=== PATIENT | male | born 1960 | race Caucasian/White ===

== ENCOUNTER 2018-02-16 14:31 | Emergency (ER) | payer MEDICAID, SELFPAY ==
[2018-02-16] VITALS (39 sets, daily range): BP systolic 130–159; BP diastolic 87–103; PULSE 69–111; RESP 10–31; TEMP 36.7; O2SAT 95–97
--- NOTE | 2018-02-16 15:15 | DI.RAD_ITS ---
SYMPTOMS/DIAGNOSIS: CHEST PAIN PA AND LATERAL CHEST: The heart is normal in size. The lungs are clear. The mediastinal structures and pleura appear intact. SUMMARY: Normal chest.
[2018-02-16 15:49] LABS: Abs Immature Grans 0.02 k/cumm (0.0-0.09); Absolute Basophil Count 0.04 k/cumm (0.0-0.2); Absolute Lymphocyte Count 1.61 k/cumm (1.2-3.4); Absolute Monocyte Count 0.39 k/cumm (0.11-0.7); Basophils % 0.5; Eosinophils % 2.6; HGB 15.3 g/dL (13.5-17.5); Immature Grans % 0.3; Mean Corp. HGB Concentration 34.8 g/dL (32.0-36.0); Mean Corpuscular Hemoglobin 31.7 pg (27.0-33.0); Mean Corpuscular Volume 91.1 fL (80-95); Mean Platelet Volume 11.4 fL (8.0-11.0); Monocytes % 5.1; Neutrophils % 70.5; Platelet Count 183 x1000/uL (130-400); RBC 4.83 m/cumm (4.50-6.00); RBC Distribution Width 12.7 % (11.8-14.1); White Blood Cell Count 7.66 k/cumm (4.4-10.8)
[2018-02-16 15:54] LABS: ALT 50 U/L (12-78); AST 22 U/L (15-37); Albumin 3.8 g/dL (3.4-5.0); Alkaline Phosphatase 91 U/L (46-116); Anion Gap 7.5 mmol/L (3-11); BUN 15 mg/dL (7-18); Bilirubin, Direct 0.07 mg/dL (0.00-0.20); Bilirubin, Total 0.4 mg/dL (0.2-1.0); CO2 30.5 mmol/L (21.0-32.0); CREATININE 1.04 mg/dL (0.70-1.30); Calcium 8.5 mg/dL (8.5-10.1); Chloride 106 mmol/L (98-107); Glucose 128 mg/dL (70-100); Magnesium 1.9 mg/dL (1.8-2.4); NT-proBNP 53 pg/mL; Potassium 3.5 mmol/L (3.5-5.1); Sodium 144 mmol/L (136-145)
[2018-02-16 15:57] LABS: Troponin I < 0.02 ng/mL (0.00-0.06)
[2018-02-16 16:19] LABS: PTT Activated 24.3 sec (21.0-31.4); Prothrombin Time 10.2 sec (9.3-10.8)
--- NOTE | 2018-02-16 18:09 | ED.GENADUL_ITS ---
Discharge Plan Disposition Patient Disposition: HOME Condition: Improving Discharge Details Chief Complaint: Chest Pain Clinical Impression: Elevated blood pressure reading, Anxiety about health Primary Care Provider: Hilario Garrido ED Provider: Carlos Eduardo Stevens Home Meds and New Rx's Prescriptions: No Action aspirin [Aspir-81] 81 MG tablet,delayed release (DR/EC) 1 tab PO DAILY Qty: 90 RF: 3 Discharge Instructions Instructions: Hypertension (ED), Anxiety (ED) Additional Instructions: Return immediately to the emergency department for any new or worsening symptoms otherwise follow-up with your primary care provider in 1 week for reassessment Referrals: Hilario Garrido [Primary Care Provider] - 1 week (Follow-up with your primary care provider in 1 week for reassessment to have your blood pressure rechecked) Medical Decision Making <Carlos Eduardo Stevens NP - Last Filed: 02/16/18 19:49> MDM Narrative Medical decision making narrative: Patient presenting to the emergency department for chief complaint of elevated blood pressure and some chest pressure. Patient states that he noticed this occurring this morning around 9 AM when he checked his pressure it was 170/110. Patient did start looking on the Internet which seems to have made things worse and increased chest pressure. Patient is unsure if he is having any ill symptoms from the elevated blood pressure or it is just anxiety related. Patient denies any diaphoresis, cough, difficulty breathing but does state continued chest pressure throughout the course of the day. He does state some ringing in his ears that occurs when he feels his blood pressure is high but otherwise denies any focal neurological deficits physical exam is unremarkable and patient was stable plan to rule out ACS with labs, perform chest x-ray due to chest pain and pressure, and do EKG. EKG reviewed with Dr. Dempsey and see interpretation noted below. Initial labs are reviewed and unremarkable and negative initial troponin but plan to do 4 hour troponin for for rule out. Patient states he is otherwise feeling fine and his blood pressure was noted to be 130s over 80s when I went in the room to reassess patient. Patient was given 3 additional aspirin given that he did take 1 aspirin this morning just in case positive troponin. Patient was agreeable to wait for second troponin. Second troponin was also negative and patient reassess. Patient states full resolution of symptoms and chest discomfort has resolved. He continually states he should not of went on the Internet and started looking up symptoms because the chest discomfort did not begin until he looked up elevated blood pressure. Given this I do feel that patient should have a follow-up with primary care in the next week for elevated blood pressure and anxiety about his health condition but otherwise I do not feel that any further workup is needed and that stress test may be performed on outpatient basis if primary care feels that this is necessary. After discussion of diagnosis and plan of care patient states no further needs, questions, or concerns at this time patient states clear understanding of need to return for any new or worsening symptoms. Patient was encouraged to take and record his daily blood pressure meetings that he obtains at home and to bring his machine with for his follow-up appointment to make sure that it is accurate. Lab Data Lab Results 02/16/18 02/16/18 02/16/18 Range/Units 15:10 15:10 15:10 WBC 7.66 (4.4-10.8) k/cumm RBC 4.83 (4.50-6.00) m/cumm Hgb 15.3 (13.5-17.5) g/dL Hct 44.0 (40.0-50.0) % MCV 91.1 (80-95) fL MCH 31.7 (27.0-33.0) pg MCHC 34.8 (32.0-36.0) g/dL RDW 12.7 (11.8-14.1) % Plt Count 183 (130-400) x1000/uL MPV 11.4 H (8.0-11.0) fL Immature Gran % 0.3 Neutrophils % 70.5 Lymphocytes % 21.0 Monocytes % 5.1 Eosinophils % 2.6 Basophils % 0.5 Absolute Neutrophils 5.40 (1.2-6.7) k/cumm Absolute Lymphocytes 1.61 (1.2-3.4) k/cumm Absolute Monocytes 0.39 (0.11-0.7) k/cumm Absolute Eosinophils 0.20 (0.0-0.7) k/cumm Absolute Basophils 0.04 (0.0-0.2) k/cumm PT 10.2 (9.3-10.8) sec INR 1.0 (1.0-3.5) APTT 24.3 (21.0-31.4) sec Sodium 144 (136-145) mmol/L Potassium 3.5 (3.5-5.1) mmol/L Chloride 106 (98-107) mmol/L Carbon Dioxide 30.5 (21.0-32.0) mmol/L Anion Gap 7.5 (3-11) mmol/L BUN 15 (7-18) mg/dL Creatinine 1.04 (0.70-1.30) mg/dL Estimated GFR/1.73 m2 >= 60.00 (mL/min/1.73m2) Glucose 128 H (70-100) mg/dL Calcium 8.5 (8.5-10.1) mg/dL Magnesium 1.9 (1.8-2.4) mg/dL Total Bilirubin 0.4 (0.2-1.0) mg/dL Conjugated Bilirubin 0.07 (0.00-0.20) mg/dL AST 22 (15-37) U/L ALT 50 (12-78) U/L Alkaline Phosphatase 91 (46-116) U/L Troponin I < 0.02 (0.00-0.06) ng/mL NT-Pro-B Natriuret Pep 53 ( - 299) pg/mL Total Protein 7.0 (6.4-8.2) g/dL Albumin 3.8 (3.4-5.0) g/dL <Moshe Dempsey MD - Last Filed: 02/16/18 18:18> ECG Data Attestation: I personally reviewed and interpreted this ECG (s) as follows: Prior ECG tracings: not available for review Interpretation: sinus rhythm, normal axis, pr intervls normal, no acute st t wave ischemic findings HPI <Carlos Eduardo Stevens NP - Last Filed: 02/16/18 19:49> General Date/Time Provider Initiated Documentation: 02/16/18 14:52 . Limitations to Documentation: no limitations . Information obtained by: patient . History of Present Illness 58 year old M presents to the emergency department with the chief complaint of chest pain/ high BP, with intensity rated at 4. Quality is described as dull (pressure), and is localized to the chest. Patient reports no radiation. Patient started experiencing this hour(s) (6) and it has been constant. No relieving factors improve symptom(s), No exacerbating factors reported . Patient did receive the following treatments prior to arrival, Aspirin (81mg) Related Data Home Medications Medication Instructions Recorded Confirmed aspirin [Aspir 81] 1 tab PO DAILY #90 tab-cap 10/13/16 02/16/18 Allergies Allergy/AdvReac Type Severity Reaction Status Date / Time No Known Allergies Allergy Unverified 02/16/18 15:03 General Stated Complaint: Chest Pain PRISCILLA: 3 Review of Systems <Carlos Eduardo Stevens NP - Last Filed: 02/16/18 19:49> Constitutional Denies body ache(s), Denies chills and Denies fever(s) Cardiovascular Reports as per HPI, Reports chest pain, Denies diaphoresis, Denies lightheadedness and Denies dyspnea Respiratory Denies cough, Denies hemoptysis and Denies dyspnea Gastrointestinal Denies abdominal pain, Denies nausea and Denies vomiting Integumentary/Breasts Denies rash Neurologic Denies confusion and Denies sensory deficit Psychiatric Denies confusion Exam <Carlos Eduardo Stevens NP - Last Filed: 02/16/18 19:49> Const General: cooperative, no acute distress and not ill appearing Orientation: alert, awake and oriented x3 HENMT Mouth: moist mucous membranes Resp Effort & Inspection: normal respiratory effort, able to speak in complete sentences and no respiratory distress Cardio Jugular venous pressure: no JVD Palpation: normal PMI Rate: regular rate Rhythm: regular rhythm Heart Sounds: S1 normal and S2 normal Pulses: radial pulses present on the right 2+ Skin General skin exam: no rashes or lesions noted Neuro General: alert, awake, oriented x3, moves all extremities and no focal motor deficits Sensory Exam: no sensory deficits noted Course <Carlos Eduardo Stevens NP - Last Filed: 02/16/18 19:49> Vital Signs Temperature 36.7 C 02/16/18 14:37 Pulse 82 02/16/18 14:37 Respiratory Rate 22 02/16/18 14:37 Blood Pressure 159/103 H 02/16/18 14:37 Pulse Oximetry 97 02/16/18 14:37 Temperature 36.7 C 02/16/18 14:37 Pulse 69 02/16/18 17:46 Respiratory Rate 16 02/16/18 18:00 Blood Pressure 133/95 H 02/16/18 17:46 Pulse Oximetry 96 02/16/18 18:00 Lab/Test Results Lab/Test Results: Laboratory Tests 02/16/18 02/16/18 02/16/18 15:10 15:10 15:10 WBC 7.66 RBC 4.83 Hgb 15.3 Hct 44.0 MCV 91.1 MCH 31.7 MCHC 34.8 RDW 12.7 Plt Count 183 MPV 11.4 H Immature Gran % 0.3 Neutrophils % 70.5 Lymphocytes % 21.0 Monocytes % 5.1 Eosinophils % 2.6 Basophils % 0.5 Absolute Neutrophils 5.40 Absolute Lymphocytes 1.61 Absolute Monocytes 0.39 Absolute Eosinophils 0.20 Absolute Basophils 0.04 PT 10.2 INR 1.0 APTT 24.3 Sodium 144 Potassium 3.5 Chloride 106 Carbon Dioxide 30.5 Anion Gap 7.5 BUN 15 Creatinine 1.04 Estimated GFR/1.73 m2 >= 60.00 Glucose 128 H Calcium 8.5 Magnesium 1.9 Total Bilirubin 0.4 Conjugated Bilirubin 0.07 AST 22 ALT 50 Alkaline Phosphatase 91 Troponin I < 0.02 NT-Pro-B Natriuret Pep 53 Total Protein 7.0 Albumin 3.8
[2018-02-16] MEDS: Aspirin 81 MG CHEW 243 MG CH (18:16)
[2018-02-16 19:16] LABS: Troponin I 0.02 ng/mL (0.00-0.06)
--- NOTE | 2018-02-17 08:56 | CMPROGNOTE_ITS ---
Care Management Progress Note 02/17/18-Pt seen on 02/16/18 for chest pain and elevated bp (170/110) by Mojgan Stevens NP. Referral for one week f/u was sent to [facility] as Dr. Megan Garrido is Pt's pcp.
== END 2018-02-16 19:56 | disposition home or self-care (01) ==
PROVIDERS: Emergency Provider Nurse Practitioner Family; PCP Family Medicine
DX: R03.0 Elevated blood-pressure reading, without diagnosis of hypertension (principal); F41.1 Generalized anxiety disorder
CPT/HCPCS: 36415; 80053; 80076; 93005; 99285; 71046; 83735; 83880; 84484; 85025; 85610; 85730; 93010; 99284

== ENCOUNTER 2018-05-26 14:38 | Outpatient (CLI) | payer MEDICAID, SELFPAY ==
[2018-05-26 15:05] LABS: Hemoglobin A1C 5.6 % (4.5-6.2)
== END 2018-05-26 14:58 ==
PROVIDERS: PCP Family Medicine; Visit Provider Family Medicine
DX: E74.39 Other disorders of intestinal carbohydrate absorption (principal)
CPT/HCPCS: 36415; 83036

== ENCOUNTER 2019-08-16 00:28 | Outpatient (CLI) | payer MEDICAID, SELFPAY ==
--- NOTE | 2019-08-16 12:45 | DI.CTLCSR_ITS ---
EXAM: CT CHEST LUNG CANCER SCREEN CLINICAL HISTORY: Screening for lung cancer, F12.2 TECHNIQUE: CT examination of chest was performed utilizing low-dose lung cancer screening protocol. COMPARISON: Examination is compared to prior study of 10/25/2017 FINDINGS: Note is again made of a calcified granuloma of the right upper lobe, unchanged from the prior study. A couple of 1-2 millimeter in diameter nodules are also seen in the right upper lobe. No additional pulmonary nodule seen. Tracheobronchial tree appears intact. There are a few focal linear scars in the lung bases. Mild pulmonary emphysematous changes noted. No mediastinal or hilar adenopathy. No pleural effusion. Images obtained through upper abdomen show unremarkable appearance of visualized portions of liver and spleen. IMPRESSION: Negative LDCT, category 2, benign appearance or behavior, continue annual screening with LDCT in [address] [place] [address].
== END 2019-08-16 00:48 ==
PROVIDERS: PCP Family Medicine; Visit Provider Family Medicine
DX: Z12.2 Encounter for screening for malignant neoplasm of respiratory organs (principal); R91.8 Other nonspecific abnormal finding of lung field; J84.10 Pulmonary fibrosis, unspecified; J43.8 Other emphysema
CPT/HCPCS: G0297

== ENCOUNTER 2020-11-14 14:19 | Outpatient (REF) | payer MEDICAID, SELFPAY ==
[2020-11-15 10:34] LABS: COVID-19 RT-PCR UVMMC Result Negative (Negative)
== END 2020-11-14 14:20 | disposition home or self-care (01) ==
LOC: LBN 14:19
PROVIDERS: PCP Family Medicine; Visit Provider Family Medicine
DX: Z20.822 Contact with and (suspected) exposure to COVID-19 (principal)
CPT/HCPCS: U0003

== ENCOUNTER 2020-11-24 03:23 | Outpatient (CLI) | payer MEDICAID, SELFPAY ==
[2020-11-24 12:49] LABS: Hemoglobin A1C 5.1 % (<5.7)
[2020-11-24 12:58] LABS: Calculated LDL 100 mg/dL (<100); Cholesterol 170 mg/dL (<200); HDL Cholesterol 34 mg/dL (40-60); Triglyceride 181 mg/dL (<150)
[2020-11-24 22:20] LABS: PSA, Screening 0.9 ng/mL (0.0-4.5)
== END 2020-11-24 03:24 | disposition home or self-care (01) ==
LOC: LOS 03:23
PROVIDERS: PCP Family Medicine; Visit Provider Family Medicine
DX: R73.9 Hyperglycemia, unspecified (principal); E78.5 Hyperlipidemia, unspecified; Z12.5 Encounter for screening for malignant neoplasm of prostate
CPT/HCPCS: 36415; 80061; 84153; 83036

== ENCOUNTER 2021-11-25 12:54 | Outpatient (CLI) | payer MEDICAID, SELFPAY ==
[2021-11-25 12:04] LABS: HCT 41.7 % (40.0-50.0); HGB 14.1 g/dL (13.5-17.5); MCH 31.5 pg (27.0-33.0); MCHC 33.8 % (32.0-36.0); MCV 93 fL (80-95); MPV 10.6 fL (8.0-11.0); Platelet Count 188 10^3/uL (130-400); RBC 4.47 10^6/uL (4.36-5.78); RDW 12.4 % (11.8-14.1); WBC 9.03 10^3/uL (4.4-10.8)
[2021-11-25 12:27] LABS: CREATININE 1.1 mg/dL (0.70-1.30); Calculated LDL 122 mg/dL (<100); Cholesterol 210 mg/dL (<200); HDL Cholesterol 52 mg/dL (40-60); Potassium 3.7 mmol/L (3.5-5.1); Triglyceride 184 mg/dL (<150)
== END 2021-11-25 12:55 | disposition home or self-care (01) ==
LOC: LBO 12:56
PROVIDERS: PCP Family Medicine; Visit Provider Family Medicine
DX: I10 Essential (primary) hypertension (principal); R53.83 Other fatigue; E78.5 Hyperlipidemia, unspecified
CPT/HCPCS: 36415; 80061; 85027; 82565; 84132

== ENCOUNTER → 2021-11-27 00:39 | Outpatient (CLI) | payer MEDICAID, SELFPAY ==
--- NOTE | 2021-11-27 12:45 | DI.CTLCSR_ITS ---
Exam(s) CT CHEST LUNG CANCER SCREEN EXAM: CT CHEST LUNG CANCER SCREEN CLINICAL HISTORY: Screening for lung cancer,current smoker, z12.2. TECHNIQUE: Imaging Protocol: Low Dose Technique CONTRAST MATERIAL: None COMPARISON: CT CT CHEST LUNG CANCER SCREEN from 08/16/2019 FINDINGS: CHEST: LUNGS: Calcified granuloma in the right upper lobe is unchanged. Benign-appearing increased markings in the right lower lobe superior segment are unchanged. No new significant right lung findings.. N o additional significant right lung findings and there are no significant focal findings in the oppos ite-left lung. There are no significant findings in the trachea and mainstem bronchi. There are no pleural effusions. MEDIASTINUM: There is no obvious hilar nor mediastinal adenopathy. CARDIAC: Heart size is normal. There is no pericardial effusion.Of the ascending thoracic aorta is s lightly prominent, measuring 3.9 cm. OTHER: No adrenal masses. OSSEOUS: No significant osseous lesions.. IMPRESSION: 1. Stable right upper lobe calcified granuloma. No new significant pulmonary nodules. 2. No pleural effusions nor intrathoracic adenopathy. 3. Lung RADS Cat 1 - Negative: No nodules and definitely benign nodules Lung-RADS 1.0 CATEGORIES: Category 0 - Prior chest CT exam(s) being located for comparison. Category 1 - Annual screening in 12 months. No nodules or definitely benign nodules. Category 2 - Annual screening in 12 months. Benign appearance. Nodules with low likelihood of becomin g active cancer. Category 3 - 6-month follow-up. Probably benign. Short-term follow-up suggested. Nodules with low lik elihood of becoming active cancer. Category 4A - 3-month follow-up and CT/PET if >8 mm in size. Suspicious finding. Findings which requi re additional testing. Category 4B - Findings which require additional testing and tissue sampling. Category 4X - Category 3 or 4 nodules with additional features or imaging findings that increases the suspicion of malignancy. Modifier S- Potentially clinically significant findings (non lung cancer) RADIATION DOSE DELIVERED: 99.12mGy.cm Total DLP 2.21mGy CTDIvol DATA REPOSITORY: All CT scans at this facility are submitted to the National Radiology Data Registry (NRDR) Dose Index Registry (DIR) with the [employer] (ACR). RADIATION OPTIMIZATION: All CT scans at this facility use at least one of these dose optimization te chniques: automated exposure control; mA and/or kV adjustment per patient size (includes targeted exa ms where dose is matched to clinical indication); or iterative reconstruction.
== END ==
PROVIDERS: PCP Family Medicine; Visit Provider Family Medicine
DX: Z12.2 Encounter for screening for malignant neoplasm of respiratory organs (principal); J84.10 Pulmonary fibrosis, unspecified
CPT/HCPCS: 71271

== ENCOUNTER 2022-11-25 09:01 | Outpatient (CLI) | payer MEDICAID, SELFPAY ==
[2022-11-25 11:16] LABS: CREATININE 1.1 mg/dL (0.70-1.30); Calculated LDL 134 mg/dL (<100); Cholesterol 214 mg/dL (<200); Estimated GFR 75.43 (mL/min/1.73m2); HDL Cholesterol 43 mg/dL (40-60); Potassium 3.7 mmol/L (3.5-5.1); Triglyceride 185 mg/dL (<150)
[2022-11-25 19:30] LABS: PSA, Screening 1.3 ng/mL (<=4.5)
== END 2022-11-25 09:02 | disposition home or self-care (01) ==
LOC: LOS 09:01
PROVIDERS: PCP Family Medicine; Visit Provider Family Medicine
DX: E78.5 Hyperlipidemia, unspecified (principal); Z12.5 Encounter for screening for malignant neoplasm of prostate; I10 Essential (primary) hypertension
CPT/HCPCS: 36415; 80061; 84153; 82565; 84132

== ENCOUNTER 2023-12-07 08:32 | Outpatient (CLI) | payer MEDICAID, SELFPAY ==
[2023-12-07 08:14] LABS: Hemoglobin A1C 5.3 % (<5.7)
[2023-12-07 08:47] LABS: Calculated LDL 117 mg/dL (<100); Cholesterol 201 mg/dL (<200); Estimated GFR 84.05 (mL/min/1.73m2); HDL Cholesterol 47 mg/dL (40-60); Potassium 3.6 mmol/L (3.5-5.1); Triglyceride 188 mg/dL (<150)
== END 2023-12-07 08:33 | disposition home or self-care (01) ==
LOC: LBO 08:32
PROVIDERS: PCP Family Medicine; Visit Provider Family Medicine
DX: I10 Essential (primary) hypertension (principal); E78.5 Hyperlipidemia, unspecified; E11.51 Type 2 diabetes mellitus with diabetic peripheral angiopathy without gangrene
CPT/HCPCS: 36415; 80061; 82565; 83036; 84132

== ENCOUNTER 2024-01-09 02:08 | Outpatient (CLI) | payer MEDICARE, MEDICAID, SELFPAY ==
--- NOTE | 2024-01-09 06:57 | DI.CTLCSR_ITS ---
Exam(s) CT CHEST LUNG CANCER SCREEN EXAM: CT CHEST LUNG CANCER SCREEN CLINICAL HISTORY: Screening for lung cancer,current smoker, F17.210 TECHNIQUE: Imaging Protocol: Axial computed tomography images with coronal and sagittal reformatted images were created and reviewed COMPARISON: CT CT CHEST LUNG CANCER SCREEN from 11/27/2021 FINDINGS: Tracheobronchial tree: Patent where visualized. No bronchiectasis. Pulmonary parenchyma: Atelectasis is seen in the lung bases. There is scarring seen in the right sonia g base. There is a calcified granuloma in the right upper lobe. No architectural distortion. Lung Nodules: There is a stable 2 mm nodule in the anterior aspect of the right upper lobe (series 2, image 114). No new pulmonary nodules are present. Mediastinum and Carina: No dominant adenopathy or fluid collection. The esophagus is unremarkable. Thyroid gland: Unremarkable. Lymph nodes: Unremarkable. Pleura: No effusion or pneumothorax. Heart: The heart is not dilated. No coronary artery calcifications are seen. No pericardial effusion . Aorta: Thoracic aorta non-dilated. Upper abdomen: Unremarkable. Soft Tissues: Unremarkable. Bones: Within normal limits. IMPRESSION: No new pulmonary nodules. Stable right upper lobe pulmonary nodule. Lung RADS Cat 2 - Benign Appearance / Behavior: Nodules with a very low likelihood of becoming a clin ically active cancer due to size or lack of growth Lung-RADS 1.0 CATEGORIES: Category 0 - Prior chest CT exam(s) being located for comparison. Category 1 - Annual screening in 12 months. No nodules or definitely benign nodules. Category 2 - Annual screening in 12 months. Benign appearance. Nodules with low likelihood of becomin g active cancer. Category 3 - 6-month follow-up. Probably benign. Short-term follow-up suggested. Nodules with low lik elihood of becoming active cancer. Category 4A - 3-month follow-up and CT/PET if >8 mm in size. Suspicious finding. Findings which requi re additional testing. Category 4B - Findings which require additional testing and tissue sampling. Suspicious finding. Category 4X - Category 3 or 4 nodules with additional features or imaging findings that increases the suspicion of malignancy. Modifier S- Potentially clinically significant finding. (Non lung cancer) RADIATION DOSE DELIVERED: Total DLP Total DLP DATA REPOSITORY: All CT scans at this facility are submitted to the National Radiology Data Registry (NRDR) Dose Index Registry (DIR) with the [employer] (ACR). RADIATION OPTIMIZATION: All CT scans at this facility use at least one of these dose optimization te chniques: automated exposure control; mA and/or kV adjustment per patient size (includes targeted exa ms where dose is matched to clinical indication); or iterative reconstruction.
== END 2024-01-09 02:28 ==
PROVIDERS: PCP Family Medicine; Visit Provider Family Medicine
DX: F17.210 Nicotine dependence, cigarettes, uncomplicated (principal); Z12.2 Encounter for screening for malignant neoplasm of respiratory organs; R91.1 Solitary pulmonary nodule
CPT/HCPCS: 71271

== ENCOUNTER 2025-01-02 01:22 | Outpatient (CLI) | payer MEDICARE, MEDICAID, SELFPAY ==
--- NOTE | 2025-01-02 07:45 | DI.MRI_ITS ---
Exam(s) MR ANGIO BRAIN WO EXAM: MR ANGIO BRAIN WO CLINICAL HISTORY: feeling like he will fall,REPEATED FALLS, R29.6 TECHNIQUE: Performed on 1.5 keisha unit with [id number] sequence No IV contrast COMPARISON: MR MR BRAIN WO from 01/02/2025 FINDINGS: ANTERIOR CIRCULATION: Both internal carotid arteries are patent in the skull base as well as within the cavernous sinuses. The supraclinoid aspects of both ICAs are patent as are both A1 segments. The anterior cerebral arteries are patent and there is no aneurysm at the level the anterior communicating artery. Both middle cerebral arteries are patent without significant stenosis nor aneurysms. POSTERIOR CIRCULATION: Basilar artery is formed at the skull base by contribution from both vertebral arteries. The basilar artery ascends with normal luminal diameter. Distally it gives off patent superior cerebellar arteries and above this level terminates as patent bilateral posterior cerebral arteries. There are small posterior communicating arteries evident on both sides the [id number]. No evidence of aneurysm at the tip of the basilar artery nor elsewhere in the [id number]. No evidence of vascular malformation in the brain. IMPRESSION: 1. Patent intracranial arteries. No evidence of stenosis nor thrombosis 2. No aneurysms nor evidence of obvious vascular malformation. . DATA REPOSITORY:
--- NOTE | 2025-01-02 07:45 | DI.MRI_ITS ---
Exam(s) MR BRAIN WO EXAM: MR BRAIN WO CLINICAL HISTORY: unsteady on his feet,PERSISTENT VERTIGO,H81.4 TECHNIQUE: Multiplanar multisequence MRI of the brain was performed. COMPARISON: No prior exams were available for comparison FINDINGS: CEREBRAL PARENCHYMA: There is no evidence of intracranial hemorrhage, mass effect, or shift of midline structures. There are no extra-axial fluid collections. Ventricles are not enlarged or shifted. There is no evidence of cerebellar tonsillar ectopia. There is no significant focal signal abnormality in the cerebellar hemispheres nor within the wilder, midbrain, and thalami. There are few tiny nonspecific foci FLAIR bright white matter foci of signal abnormality. No associated restricted diffusion at these levels nor elsewhere in the brain to suggest acute ischemic event. PITUITARY GLAND: No mass nor parasellar abnormality. No obvious abnormality in the cavernous sinuses. FLOW VOIDS: The expected flow void are noted. No evidence of obvious aneurysm nor obvious vascular malformation. PARANASAL SINUSES: The visualized paranasal sinuses appear unremarkable. No obvious finding ORBITS: No obvious findings. IMPRESSION: No significant acute intracranial findings on this noninfused MRI scan of the brain. There are few tiny bilateral nonspecific foci of FLAIR bright signal abnormality in the bilateral periventricular white matter. These are nonspecific findings. DATA REPOSITORY:
== END 2025-01-02 01:42 ==
LOC: DI 01:23
PROVIDERS: PCP Family Medicine; Visit Provider Family Medicine
DX: H81.4 Vertigo of central origin (principal); R29.6 Repeated falls
CPT/HCPCS: 70544; 70551